=== PATIENT | female | born 1985 | race Caucasian/White ===

== ENCOUNTER 2017-09-16 01:04 | Emergency (ER) | payer OTHER ==
[~2017-09-16] VITALS: Ht 149.9 cm; Wt 37.6 kg
[2017-09-16 01:23] LABS: ADD MIUA? YES; BILIRUBIN NEGATIVE; BLOOD SMALL; COLOR YELLOW ((YELLOW)); GLUCOSE (STRIP) NEGATIVE; KETONES 20; LEUKOCYTES NEGATIVE; NITRITE NEGATIVE; PROTEIN (STRIP) 100; SPECIFIC GRAVITY 1.026 (1.000-1.030); UROBILINOGEN 0.2 MG/DL (0.2-1.0)
[2017-09-16 01:27] LABS: HEMATOCRIT 40.4 % (36.0-46.0); MCH 27.7 PG (29.0-34.0); MCHC 33.4 G/DL (30.0-36.0); MCV 82.8 FL (83-99); MEAN PLAT.VOLUME 9.4 uM^3 (9.5-12.4); PLATELET COUNT 282 K/uL (156-360); RBC DIS.WIDTH-CV 13.3 % (11.8-14.6); RBC DIS.WIDTH-SD 39.9 % (39-53); RED BLOOD COUNT 4.88 M/uL (3.80-5.20)
[2017-09-16 01:36] LABS: BACTERIA NONE SEEN /HPF; EPITHELIAL CELLS 2+ /HPF; MUCUS 4+ /LPF; RED BLOOD CELLS 0-5 /HPF (0-5); UCUL ADDED? NO; WHITE BLOOD CELLS 0-5 /HPF (0-5)
[2017-09-16 01:38] LABS: CHLORIDE 104 mEq/L (99-109); POTASSIUM 3.5 mEq/L (3.7-5.4); SODIUM 139 mEq/L (136-147)
[2017-09-16 01:40] LABS: GLUCOSE 131 mg/dL (70-99)
[2017-09-16 01:41] LABS: ANION GAP 11 MEQ/L (2-14)
[2017-09-16 01:42] LABS: TOTAL BILIRUBIN 1.3 mg/dL (0.0-1.0)
[2017-09-16 01:43] LABS: ALKALINE PHOSPHATASE 88 IU/L (3-129)
[2017-09-16 01:44] LABS: GFR ESTIMATE (CALCULATED) > 59 mL/min/
[2017-09-16 01:45] LABS: UREA NITROGEN (BUN) 13 mg/dL (9-23)
[2017-09-16 01:52] LABS: QUANTITATIVE HCG < 4.0 MIU/ML
[2017-09-16 05:59] VITALS: BP 97/64
== END 2017-09-16 05:59 | disposition home or self-care (01) ==
LOC: EME 01:04
DX: K52.9 Noninfective gastroenteritis and colitis, unspecified (principal); Z88.5 Allergy status to narcotic agent
CPT/HCPCS: 74177; 80053; 81003; 84702; 85027; 99281; 99285; J2405; J3010; J7030

== ENCOUNTER 2018-05-21 20:36 | Emergency (ER) | payer OTHER ==
[~2018-05-21] VITALS: Ht 149.9 cm; Wt 38.5 kg
[2018-05-21 21:00] LABS: HEMATOCRIT 38.4 % (36.0-46.0); MCH 27.1 PG (29.0-34.0); MCHC 33.9 G/DL (30.0-36.0); MCV 80.2 FL (83-99); PLATELET COUNT 270 K/uL (156-360); RBC DIS.WIDTH-CV 13.9 % (11.8-14.6); RBC DIS.WIDTH-SD 39.9 % (39-53); RED BLOOD COUNT 4.79 M/uL (3.80-5.20); WHITE BLOOD COUNT 8.7 K/uL (4.1-10.2)
[2018-05-21 21:11] LABS: CHLORIDE 103 mEq/L (99-109)
[2018-05-21 21:12] LABS: POTASSIUM 3.7 mEq/L (3.7-5.4); SODIUM 140 mEq/L (136-147)
[2018-05-21 21:13] LABS: GLUCOSE 108 mg/dL (70-99)
[2018-05-21 21:17] LABS: CREATININE 0.8 mg/dL (0.6-1.3); GFR ESTIMATE (CALCULATED) > 59 mL/min/
[2018-05-21 21:18] LABS: UREA NITROGEN (BUN) 11 mg/dL (9-23)
[2018-05-21 21:39] LABS: TOTAL PROTEIN 7.6 g/dL (6.4-8.3)
[2018-05-21 21:40] LABS: TOTAL BILIRUBIN 0.6 mg/dL (0.0-1.0)
[2018-05-21 21:40] LABS: APPEARANCE CLEAR ((CLEAR)); BILIRUBIN NEGATIVE; BLOOD NEGATIVE; COLOR YELLOW ((YELLOW)); GLUCOSE (STRIP) NEGATIVE; KETONES NEGATIVE; LEUKOCYTES NEGATIVE; NITRITE NEGATIVE; PROTEIN (STRIP) NEGATIVE; SPECIFIC GRAVITY 1.014 (1.000-1.030); UCUL ADDED? NO; UROBILINOGEN 0.2 MG/DL (0.2-1.0)
[2018-05-21 21:41] LABS: ALKALINE PHOSPHATASE 78 IU/L (3-129)
[2018-05-21 21:44] LABS: AST (GOT) 20 IU/L (2-34); DIRECT BILIRUBIN 0.2 mg/dL (0.0-0.3); TROP-I INTERPRETATION NEGATIVE; TROPONIN-I < 0.01 ng/mL (0.0-0.30)
[2018-05-21 21:45] LABS: ALT (GPT) 10 IU/L (3-49); LIPASE 28 U/L (1.0-51.0)
[2018-05-21 21:51] LABS: QUANTITATIVE HCG < 4.0 MIU/ML
[2018-05-22 00:43] LABS: TROP-I INTERPRETATION NEGATIVE; TROPONIN-I < 0.01 ng/mL (0.0-0.30)
[2018-05-22] MEDS ORDERED: ZOFRAN ODT4 MG PO (01:50)
[2018-05-22 02:00] VITALS: BP 121/78
== END 2018-05-22 02:00 | disposition home or self-care (01) ==
LOC: EME 20:36
PROVIDERS: Physician Assistant Medical
DX: R10.31 Right lower quadrant pain (principal); R07.9 Chest pain, unspecified; K58.9 Irritable bowel syndrome, unspecified; Z90.49 Acquired absence of other specified parts of digestive tract; Z88.5 Allergy status to narcotic agent; Z88.8 Allergy status to other drugs, medicaments and biological substances
CPT/HCPCS: 71046; 74177; 80048; 80076; 81003; 83690; 84484; 84702; 85027; 93005; 99281; 99285; J1885; J2405; J2765; J3010; J7030